=== PATIENT | male | born 1940 | race Hispanic/Latino ===

== ENCOUNTER → 2016-10-08 | Outpatient (REF) | payer OTHER ==
[~2016-10-08] MED LIST: ASPI81TA11 PO; ATEN50TA2 PO; ATOR40TA PO; BACT800T5 PO; CARV12.5 PO; CLOP75TA2 PO; DOCU100C PO; FLOM5CAP PO; LEVO75TA4 PO; METF500T PO; SENN8.6C PO; TYLE650T25 PO; [UNRECOGNIZED DRUG - OTHER] OR; [UNRECOGNIZED DRUG - SUPPLY]
== END ==
LOC: M SMT 12:44
PROVIDERS: ATTEND Urology
DX: N40.1 Benign prostatic hyperplasia with lower urinary tract symptoms (principal)

== ENCOUNTER → 2016-11-15 | Outpatient (CLI) | payer OTHER ==
[2016-11-15 11:08] LABS: ALBUMIN 3.7 GM/DL (3.2-5.2); ALBUMIN/GLOBULIN RATIO 1.06 (1.00-1.93); ALKALINE PHOSPHATASE 106 U/L (45-117); ALT/SGPT 22 U/L (12-78); ANION GAP 11 MEQ/L (8-16); AST/SGOT 14 U/L (15-37); BILIRUBIN,TOTAL 0.6 MG/DL (0.2-1.0); BLOOD UREA NITROGEN 16 MG/DL (7-18); CALCIUM LEVEL 8.8 MG/DL (8.8-10.2); CARBON DIOXIDE LEVEL 27 MEQ/L (21-32); CHLORIDE LEVEL 100 MEQ/L (98-107); CREATININE FOR GFR 1.09 MG/DL (0.70-1.30); GLOMERULAR FILTRATION RATE > 60.0 (>42); GLUCOSE, FASTING 263 MG/DL (83-110); POTASSIUM SERUM 4.2 MEQ/L (3.5-5.1); SODIUM LEVEL 138 MEQ/L (136-145); TOTAL PROTEIN 7.2 GM/DL (6.4-8.2)
== END ==
LOC: M LAB 10:01
PROVIDERS: ATTEND Physician Assistant
DX: I25.10 Atherosclerotic heart disease of native coronary artery without angina pectoris (principal); E78.2 Mixed hyperlipidemia; I11.9 Hypertensive heart disease without heart failure

== ENCOUNTER 2016-11-22 09:05 | Inpatient (IN) | payer OTHER ==
[~2016-11-22] VITALS: Ht 152.4 cm; Wt 73.6 kg
[2016-11-22] MEDS ORDERED: OMEP40CA2 PO ×2 (09:41→13:34)
[2016-11-22] MEDS ORDERED: OXYB5TA PO (09:41)
[2016-11-22] MEDS ORDERED: GLYB5TAB PO ×3 (09:41→13:34)
[2016-11-22] MEDS ORDERED: BAYE1TAB PO (09:41)
[2016-11-22] MEDS ORDERED: LISI-542 PO ×2 (09:41→13:34)
[2016-11-22] MEDS ORDERED: PLAV75TA38 PO ×2 (09:41→13:34)
[2016-11-22 11:36] LABS: ANION GAP 10 MEQ/L (8-16); BLOOD UREA NITROGEN 11 MG/DL (7-18); CALCIUM LEVEL 8.6 MG/DL (8.8-10.2); CARBON DIOXIDE LEVEL 24 MEQ/L (21-32); CHLORIDE LEVEL 91 MEQ/L (98-107); CREATININE FOR GFR 1.15 MG/DL (0.70-1.30); GLOMERULAR FILTRATION RATE > 60.0 (>42); GLUCOSE, FASTING 231 MG/DL (83-110); POTASSIUM SERUM 3.5 MEQ/L (3.5-5.1); SODIUM LEVEL 125 MEQ/L (136-145)
[2016-11-22 12:28] LABS: BASO % 0.1 % (0.0-1.0); EOS # 0.1 K/mm3 (0.0-0.50); EOS % 0.9 % (0.0-3.0); LARGE UNSTAINED CELL # 0.3 K/mm3 (0.0-0.4); LARGE UNSTAINED CELL % 2.7 % (0.0-4.0); LYMPH # 0.9 K/mm3 (1.5-4.5); LYMPH % 8.5 % (24.0-44.0); MEAN CORPUSCULAR HEMOGLOBIN 30.7 pg (27.0-33.0); MEAN CORPUSCULAR HGB CONC 33.8 g/dl (32.0-36.5); MEAN CORPUSCULAR VOLUME 90.8 fl (80.0-96.0); MONO # 0.5 K/mm3 (0.0-0.8); NEUTROPHILS # 8.3 K/mm3 (1.8-7.7); NEUTROPHILS % 82.8 % (36.0-66.0); PLATELET COUNT, AUTOMATED 159 k/mm3 (150-450); RED CELL DISTRIBUTION WIDTH 13.6 % (11.5-14.5)
[2016-11-22] MEDS ORDERED: CIPROFLOXACIN 400 MG in APPROPRIATE DILUENT 1 EA IV ONE (13:00)
[2016-11-22] MEDS ORDERED: ATOR40TA PO (13:34)
[2016-11-22] MEDS ORDERED: ACET-654 PO (13:34)
[2016-11-22] MEDS ORDERED: CARV12.5 PO (13:34)
[2016-11-22] MEDS ORDERED: ASPI325T PO (13:34)
[2016-11-22] MEDS ORDERED: LEVO75TA4 PO (13:34)
[2016-11-22] MEDS ORDERED: NS 1,000 ML IV SCH (15:24)
[2016-11-22] MEDS ORDERED: ONDANSETRON 4MG/2ML VIAL (J2405) IV PRN (15:30)
[2016-11-22 16:03] LABS: ALBUMIN 3.3 GM/DL (3.2-5.2); ALBUMIN/GLOBULIN RATIO 0.89 (1.00-1.93); BILIRUBIN,DIRECT 0.3 MG/DL (0.0-0.2); BILIRUBIN,TOTAL 0.9 MG/DL (0.2-1.0)
[2016-11-22] MEDS ORDERED: GASTROGRAFIN SOLUTION 30ML (Q9963) PO ONE ×2 (16:10→16:40)
[2016-11-22] MEDS: NORCO, ANEXSIA 5/325MG TABLET (HYDROcodone/ACETAMINOPHEN) PO PRN (16:13)
[2016-11-22] MEDS ORDERED: GLUCAGON FOR INJ 1 MG VIAL (J1610) SC PRN (16:15)
[2016-11-22] MEDS ORDERED: DEXTROSE 50% 50 ML SYRINGE IV PRN (16:15)
[2016-11-22] MEDS ORDERED: GLUCOSE 4 GM CHEW TABLET PO PRN (16:15)
--- NOTE | 2016-11-22 17:14 | ECGEPIP ---
Stationary ECG Study [facility] Test Date: 2016-11-22 Pat Name: ELENA DONALD Department: Room: - Gender: M Radiation Oncology Manager: rn : 1940 Requested By: DORA CONNOR Order Number: [id number] Reading MD: Sonia Grimaldo Measurements Intervals Nelson Rate: 62 P: 35 IN: 183 QRS: 68 QRSD: 102 T: 78 QT: 407 QTc: 415 Interpretive Statements SINUS RHYTHM ST & T-WAVE ABNORMALITY SIMILAR TO 11/11/15 Electronically Signed On 11-22-2016 17:13:55 EST by Sonia Grimaldo
[2016-11-22] MEDS ORDERED: HumaLOG INSULIN (NovoLOG) PER UNIT SC SCH ×2 (17:30→21:00)
--- NOTE | 2016-11-22 18:27 | HPE ---
DATE OF ADMISSION: 11/22/2016 Time patient was seen was at 1500 hours CHIEF COMPLAINT: Abdominal pain, painful urination. HISTORY OF PRESENT ILLNESS: 76-year-old male with past medical history of coronary artery disease, type 2 diabetes, benign prostatic hypertrophy (BPH) , urinary incontinence, who presented with severe abdominal pain and could not urinate. Per patient, it started three days ago and the patient has severe pain when he tries to urinate. He also has severe abdominal pain about 30 minutes after eating. He has reduced appetite due to the pain and has not been eating much for the past three days. In addition, the patient has diarrhea for the past three days as well and also admits to some chills and also nausea. However, the patient is passing flatus. The patient did see Dr. Currie, his urologist, one week ago, and was given oxybutynin for his urinary incontinence. He took the medication for about four days and it was discontinued due to dry mouth, and his problem started immediately after discontinuation of the oxybutynin, per patient. The patient also admits to elevated blood sugar. Per patient's daughter, the sugar was between 200 and 400 at home for the past few days, normally he runs around 200s. The patient does seen [facility] for primary care. In addition, the patient does not speak Portuguese. Most of the history was obtained from the patient's daughter. In addition, we have utilized the phone interpretation service. ALLERGIES: No known drug allergies. HOME MEDICATIONS: - acetaminophen 650 mg one tablet by mouth as needed - aspirin 325 mg one tablet by mouth daily - atorvastatin 40 mg one tablet by mouth at night - carvedilol 12.5 mg one tablet by mouth twice a day - Plavix 75 mg one tablet by mouth daily - glyburide/metformin 5/500 mg two tablets by mouth twice a day - Synthroid 75 mcg one tablet by mouth in the morning - Lisinopril 5 mg one tablet by mouth at night - omeprazole 40 mg one tablet by mouth daily PAST MEDICAL HISTORY: Includes: 1. Type 2 diabetes. 2. Coronary artery disease, status post stents. 3. Benign prostatic hypertrophy (BPH) . 4. Urinary incontinence. 5. Hypothyroidism. 6. Hypertension. 7. Gastroesophageal reflux disease (GERD). PAST SURGICAL HISTORY: Includes: 1. Cardiac stents, last stent was in 2014 at [facility]. 2. The patient also had prostate surgery with Dr. Currie. According to the patient's past medical history on the Electronic Medical Record, shows that the patient had a transurethral resection of prostate (TURP) procedure done with Dr. Currie due to prostate enlargement on 11/19/2015, roughly one year ago. SOCIAL HISTORY: The patient denies any smoking, drinking, or recreational drug use. The patient lives at home with daughter and son-in-law. The patient used to work in construction. FAMILY HISTORY: Denies any medical problems in the family, per patient's daughter. REVIEW OF SYSTEMS: CONSTITUTIONAL: The patient denies any recent traveling , any weight changes, any sick contacts. The patient does have chills; however. Denies any fever that was measured. HEENT: Denies any changes with vision, hearing or taste. CARDIOVASCULAR: Denies any chest pain, trouble breathing. PULMONARY: Denies any trouble breathing. GASTROINTESTINAL: Admits to nausea. Denies any vomiting. Admits to diarrhea. Denies any blood in the stool. GENITOURINARY: Admits to difficulty urinating and painful urination. Denies any changes with urinary color, however. MUSCULOSKELETAL: Denies any pain anywhere else. NEUROLOGIC: Denies any weakness on any side of his body. Denies any dizziness; however, admits to reduced appetite for the past few days due to the pain. ENDOCRINE: Admits to type 2 diabetes and sugar runs in the 300s for the past few days and normally runs in the 200s. The patient also has hypothyroidism and is taking supplementation. PSYCHIATRIC: Normal affect. SKIN: The patient does report some rash around the mouth, which appeared for the past few days. PHYSICAL EXAMINATION: VITAL SIGNS: Temperature 98.9, pulse 75, respirations 18, blood pressure 143/71, oxygen saturation 99% on room air. GENERAL: The patient is obese, elderly, male who was alert, awake, oriented times three. Appears to be younger than his age. Was lying in bed with head elevated at 45 degree angle. HEENT: Normocephalic, atraumatic. Extraocular motors intact. Mucosa moist. NECK: Supple. No neck lymphadenopathy. CARDIOVASCULAR: Regular rate and rhythm. S1, S2. No murmurs, rubs or gallops. LUNGS: Clear to auscultation bilaterally. No wheezes, rales or rhonchi. ABDOMEN: Hypoactive bowel sounds. Obese. Slightly distended. No peritoneal signs; however, it was tender to palpation, mostly to the left upper quadrant and suprapubic area. No ecchymosis. EXTREMITIES: No edema, clubbing or cyanosis. SKIN: Warm and dry. NEUROLOGIC: Cranial nerves II through XII intact. No focal neurologic deficit. LABORATORY DATA: WBC 10, hemoglobin 12.9, hematocrit 38.1 with a platelet count of 159. MCV of 19.8, neutrophil percentage was 82.8. ESR is pending. C-reactive protein was elevated at 14.2. Sodium was low at 125, potassium 3.5, chloride 91, bicarbonate 24, anion gap 10, BUN 10, creatinine 1.15, GFR greater than 60, fasting glucose 231, osmolality was low at 266. Calcium 8.6. Total bilirubin 0.9, direct bilirubin 0.3, AST 13, ALT 19, alkaline phosphatase 98, total protein 7, albumin 3.3, lipase 144, TSH was elevated at 4.43. Urinalysis shows cloudy urine, 2+ protein, 3+ glucose, 2+ blood, 2 urobilinogen, 2+ leukocyte esterase, WBC was too many to count, 24 RBCs and 2+ bacteria. There was also small amorphous sediment. Urine random osmolality was 622. Urine creatinine was 197. Urine sodium was 11. Urine culture is currently pending. Blood culture times two is pending. The patient's CT of the abdomen and pelvis with oral contrast, result is pending. ASSESSMENT AND PLAN: 76-year-old male with past medical history of type 2 diabetes, poorly controlled, hypertension, benign prostatic hypertrophy (BPH) , urinary incontinence, coronary artery disease, who presented with: 1. Abdominal pain and painful urination, likely related to urinary tract infection (UTI) versus partial small bowel obstruction. UA does show that the patient has urinary tract infection. The patient was started on ciprofloxacin in the emergency room. We will continue. However, the patient does appear to have severe abdominal pain, which was worse with food, therefore CT of the abdomen and pelvis has been ordered to rule out partial obstruction. However, the patient does not have a white count. However, the patient does have elevated C-reactive protein, which was 14.2. We will continue to monitor. We will followup with Clostridium (C) difficile study, as well as blood culture. Continue to monitor the patient. Keep patient nothing by mouth for now. Start gentle hydration. 2. Hyponatremia. Possibly hypovolemic due to diarrhea. The patient's creatinine does appear to be slightly elevated at 1.15. The patient may be dehydrated. We will start gentle hydration with normal saline at a rage of 40 mL per hour and see how well the patient responds. We will consider to increase IV fluid once the patient's sodium is more stable. Continue to monitor the patient's input and output. The patient did admit that he is not eating much for the past three days due to the pain and does admit that having diarrhea for the past three days. 3. Uncontrolled type 2 diabetes with sugar in the 300s at home. We will place the patient on insulin sliding scale for now and hold the patient's glyburide and metformin. Continue to monitor the patient. 4. History of hypertension. Continue home medication with Lisinopril and Coreg with hold parameters. Continue to monitor the patient. 5. Coronary artery disease, status post stent placement. Continue Lipitor, Coreg, aspirin, Plavix. Continue to monitor the patient. 6. History of hypothyroidism. Continue Synthroid. TSH was mildly elevated in the emergency room. We will followup with a Free T4 in the morning. 7. Deep vein thrombosis (DVT) prophylaxis with heparin 5000 units every 5 hours. DISPOSITION: We will need to followup with a CT of the abdomen and pelvis and followup with urine culture, blood culture and C difficile study. Continue to monitor the patient. We will continue the patient on ciprofloxacin 500 mg IV every 12 hours for now and continue to place the patient on gentle hydration and monitor for normalizing of his sodium. The patient has been discussed with attending doctor, Dr. Zapata. My preceptor for this patient encounter was Dr. Zapata. The preceptor was physically present in the building during the encounter and was fully available. As needed, all aspects of the patient interview, examination, medical decision making process, and medical care plan development were reviewed and approved by the preceptor. The preceptor is aware and concurs with the plan as stated in the body of this note and will attest to such by his/her cosignature.
--- NOTE | 2016-11-22 18:37 | REP ---
CT study of the abdomen and pelvis with oral but without IV contrast: History: Abdominal pain lower abdomen. No comparison studies. CT findings: Preliminary digital material worker radiograph demonstrates air and fluid filled small and large bowel loops throughout the abdomen with multiple air-fluid levels. The lung bases show emphysematous bullae and air cysts numerously distributed throughout the lower lobes and right middle lobe and lingula. There is some pleuroparenchymal fibrosis in the left base. There is a granulomatous calcification in the right lower lobe. No pleural effusion is seen. No adrenal lesion is observed. The liver and the spleen are normal in size homogeneous in texture. No pancreatic abnormality is seen. The gallbladder is unremarkable. No retroperitoneal mass or adenopathy is observed. Mild ectasia of the infrarenal abdominal aorta is seen, maximum AP dimension 2.4 cm. The appendix is not identified confidently but there is no CT evidence of appendicitis. There is sigmoid colon diverticulosis with no CT evidence of diverticulitis. The prostate gland is somewhat enlarged. Seminal vesicles and urinary bladder are unremarkable. No abdominal wall defect is seen. Bone window settings show no bony destructive lesion. There is no evidence of intrarenal nephrolithiasis or hydronephrosis on either side. Impression: Left colonic diverticulosis without CT evidence of diverticulitis. Abdominal aortic ectasia, no austin aneurysm. Prostate enlargement. Multiple small and large bowel air-fluid levels without obstructive lesion, question mild enteritis. No other abnormality. Signed by Destin Harmon MD 11/22/2016 07:46 P
[2016-11-22] MEDS: ACETAMINOPHEN TAB 650MG DOSE (2X325MG) PO PRN (22:49)
[2016-11-22 23:10] VITALS: BP 154/78
[2016-11-23] MEDS: DOCUSATE SODIUM 100 MG CAP PO SCH ×3 (00:07→21:56)
[2016-11-23] MEDS: ATORVASTATIN 20 MG TAB PO SCH ×2 (00:24→21:56)
[2016-11-23] MEDS: LISINOPRIL 5 MG TAB PO SCH ×2 (00:24→21:57)
[2016-11-23] MEDS: HEPARIN SOD (PORCINE) 5000 UNITS/ML VIAL SC SCH ×4 (00:25→22:02)
[2016-11-23] MEDS: CARVedilol 12.5 MG TAB PO SCH ×3 (00:25→21:56)
[2016-11-23] MEDS: metroNIDAZOLE 500 MG in APPROPRIATE DILUENT 1 EA IV SCH ×4 (00:25→14:27)
[2016-11-23] MEDS: HumaLOG INSULIN (NovoLOG) PER UNIT SC SCH ×5 (01:34→21:00)
[2016-11-23] MEDS: CIPROFLOXACIN 400 MG in APPROPRIATE DILUENT 1 EA IV SCH ×2 (01:34→12:08)
[2016-11-23 06:00] VITALS: BP 133/64
[2016-11-23] MEDS: LEVOTHYROXINE 0.075 MG TAB (75 MCG) PO SCH (06:23)
[2016-11-23 06:48] LABS: BASO % 0.3 % (0.0-1.0); EOS # 0.1 K/mm3 (0.0-0.50); EOS % 1.2 % (0.0-3.0); LARGE UNSTAINED CELL # 0.2 K/mm3 (0.0-0.4); LARGE UNSTAINED CELL % 4.5 % (0.0-4.0); LYMPH # 0.6 K/mm3 (1.5-4.5); LYMPH % 11.9 % (24.0-44.0); MEAN CORPUSCULAR HEMOGLOBIN 30.7 pg (27.0-33.0); MEAN CORPUSCULAR HGB CONC 33.6 g/dl (32.0-36.5); MEAN CORPUSCULAR VOLUME 91.3 fl (80.0-96.0); MONO # 0.4 K/mm3 (0.0-0.8); MONO % 8.4 % (0.0-5.0); NEUTROPHILS # 3.5 K/mm3 (1.8-7.7); NEUTROPHILS % 73.7 % (36.0-66.0); PLATELET COUNT, AUTOMATED 155 k/mm3 (150-450); RED CELL DISTRIBUTION WIDTH 13.7 % (11.5-14.5); WHITE BLOOD COUNT 4.8 K/mm3 (4.0-10.0)
[2016-11-23 07:18] LABS: ALBUMIN 2.9 GM/DL (3.2-5.2); ALBUMIN/GLOBULIN RATIO 0.67 (1.00-1.93); ALKALINE PHOSPHATASE 91 U/L (45-117); ALT/SGPT 16 U/L (12-78); ANION GAP 11 MEQ/L (8-16); AST/SGOT 14 U/L (15-37); BILIRUBIN,TOTAL 0.8 MG/DL (0.2-1.0); BLOOD UREA NITROGEN 11 MG/DL (7-18); CALCIUM LEVEL 8.3 MG/DL (8.8-10.2); CARBON DIOXIDE LEVEL 25 MEQ/L (21-32); CHLORIDE LEVEL 99 MEQ/L (98-107); CREATININE FOR GFR 1.08 MG/DL (0.70-1.30); GLOMERULAR FILTRATION RATE > 60.0 (>42); GLUCOSE, FASTING 165 MG/DL (83-110); POTASSIUM SERUM 3.4 MEQ/L (3.5-5.1); SODIUM LEVEL 135 MEQ/L (136-145); TOTAL PROTEIN 7.2 GM/DL (6.4-8.2)
[2016-11-23] MEDS ORDERED: NS 0.45% 1,000 ML IV SCH (07:45)
[2016-11-23] MEDS ORDERED: D5W 1,000 ML IV SCH (08:00)
[2016-11-23] MEDS ORDERED: POTASSIUM CHLORIDE 10 MEQ SR TABLET PO ONE (08:00)
[2016-11-23] MEDS: PANTOPRAZOLE 40MG INJ (PROTONIX) (C9113) IV SCH (08:54)
[2016-11-23] MEDS: ASPIRIN 325 MG TAB PO SCH (08:55)
[2016-11-23] MEDS: CLOPIDOGREL 75 MG TAB PO SCH (08:55)
[2016-11-23] MEDS ORDERED: OMEPRAZOLE 20 MG CAP PO SCH (09:00)
[2016-11-23] MEDS: MORPHINE 2 MG/ML 1ML SYRINGE IV PRN ×2 (09:07→12:13)
[2016-11-23] MEDS: TAMSULOSIN 0.4 MG CAP PO SCH (10:52)
[2016-11-23 12:43] LABS: ANION GAP 11 MEQ/L (8-16); BLOOD UREA NITROGEN 10 MG/DL (7-18); CALCIUM LEVEL 8.3 MG/DL (8.8-10.2); CARBON DIOXIDE LEVEL 23 MEQ/L (21-32); CHLORIDE LEVEL 96 MEQ/L (98-107); CREATININE FOR GFR 1.24 MG/DL (0.70-1.30); GLOMERULAR FILTRATION RATE > 60.0 (>42); GLUCOSE, FASTING 255 MG/DL (83-110); POTASSIUM SERUM 3.9 MEQ/L (3.5-5.1); SODIUM LEVEL 130 MEQ/L (136-145)
[2016-11-23 14:00] VITALS: BP 152/67
--- NOTE | 2016-11-23 15:23 | IPN ---
DATE: 11/23/2016 Time patient was seen was this morning at 10:30. The patient has been seen and examined at bedside. No acute events overnight. However, yesterday evening, the patient did have an elevated temperature at 10: 37 p.m. and temperature was 101.3. This morning, the patient was feeling well, improved from yesterday. Stated that the abdominal pain has improved. The patient was urinating better. Denies any trouble breathing or any further abdominal pains. Denies any other current new complaints. PHYSICAL EXAMINATION: VITAL SIGNS: Temperature was 99.2, pulse was 63, respirations 18, blood pressure 133/64, oxygen saturation 94% on room air. GENERAL: The patient is obese, elderly, male, who was pleasant; however, does not understand Faroese. The patient is lying comfortably in bed. HEENT: Normocephalic, atraumatic. Extraocular motors intact. Mucosa moist. NECK: Supple. No neck lymphadenopathy. CARDIOVASCULAR: Regular rate and rhythm. S1, S2. There was a 2/6 systolic heart murmur. PULMONARY: Clear to auscultation bilaterally. No wheezes, rales or rhonchi. ABDOMEN: Positive bowel sounds. Soft, nontender. There are no peritoneal signs. No ecchymoses. EXTREMITIES: No edema, clubbing, or cyanosis. SKIN: Warm and dry. NEUROLOGIC: Cranial nerves II through XII intact. No focal neurological deficit. LABORATORY DATA: WBC 4.8, hemoglobin 12.5, hematocrit 37.3 with a platelet count of 155, MCV 91.3. ESR 69. Sodium this morning initially was 135, repeat was 130, potassium 3.4, chloride 99, bicarbonate 25, BUN 11, creatinine 1.08, GFR was greater than 60%, fasting glucose 165, calcium 8.3, total bilirubin 0.8, AST 14, ALT is 16, alkaline phosphatase 91, C-reactive protein 9.77, improved from yesterday 14.2, total protein 7.2, albumin 2.9, Free T4 1.3. Accu-Chek glucose was 114, 152, 163, 253. The patient's GI panel shows positive for multi plaque nucleic acid indicating Enteroaggregative Escherichia (E) coli , which is the second most common cause for traveler's diarrhea. The patient had a CT of the abdomen and pelvis yesterday evening, which shows left colonic diverticulosis without CT evidence of diverticulitis. Abdominal aortic ectasia. No austin aneurysm. Prostate enlargement. Multiple small and large bowel air-fluid level without obstructive lesion, questionable mild enteritis. ASSESSMENT AND PLAN: 76-year-old male with past medical history of type 2 diabetes, coronary artery disease, status post stents, benign prostatic hypertrophy (BPH), urinary incontinence, hypothyroidism, hypertension, gastroesophageal reflux disease (GERD), presented with: 1. Abdominal pain and painful urination likely secondary to bacterial enteritis. CT of the abdomen and pelvis shows enteritis. The patient's GI panel also shows traveler's diarrhea. The patient was on Cipro and Flagyl for possible colitis. We will discontinue Flagyl today and continue the patient on ciprofloxacin. Continue to monitor the patient. We will advance diet as tolerated. 2. Hyponatremia. Sodium has raised up to 135 this morning from 125. We will reverse the correction with D5W and then we will stop the IV fluid and continue the patient on advanced diet as tolerated. We will repeat her basic metabolic panel to monitor the correction. 3. Recently found aortic ectasia, stable. The patient may need outpatient followup. 4. History of benign prostatic hypertrophy (BPH). Start the patient on Flomax. We will continue to monitor. 5. Type 2 diabetes. On insulin sliding scale. 6. Coronary artery disease, status post stents. Continue home medications. On statin, beta anna marie. 7. Hypothyroidism. Continue Synthroid. 8. Gastroesophageal reflux disease (GERD). Continue proton pump inhibitor. 9. Deep vein thrombosis (DVT) prophylaxis with subcutaneous heparin. DISPOSITION: The patient has traveler's diarrhea. We will continue Cipro. Also, the patient has hyponatremia, likely secondary to GI loss and poor oral intake. We will continue to monitor, which has been corrected today. The patient has been discussed with attending doctor, Dr. Leija. My preceptor for this patient encounter was Dr. Leija. The preceptor was physically present in the building during the encounter and was fully available. As needed, all aspects of the patient interview, examination, medical decision making process, and medical care plan development were reviewed and approved by the preceptor. The preceptor is aware and concurs with the plan as stated in the body of this note and will attest to such by his/her cosignature. ARABELLA
[2016-11-23 16:35] LABS: ANION GAP 10 MEQ/L (8-16); BLOOD UREA NITROGEN 9 MG/DL (7-18); CALCIUM LEVEL 8.1 MG/DL (8.8-10.2); CARBON DIOXIDE LEVEL 24 MEQ/L (21-32); CHLORIDE LEVEL 99 MEQ/L (98-107); CREATININE FOR GFR 1.11 MG/DL (0.70-1.30); GLOMERULAR FILTRATION RATE > 60.0 (>42); GLUCOSE, FASTING 158 MG/DL (83-110); POTASSIUM SERUM 3.7 MEQ/L (3.5-5.1); SODIUM LEVEL 133 MEQ/L (136-145)
[2016-11-23] MEDS: NORCO, ANEXSIA 5/325MG TABLET (HYDROcodone/ACETAMINOPHEN) PO PRN (17:51)
[2016-11-23] MEDS ORDERED: EUCERIN 120GM CREAM TOP PRN (18:00)
[2016-11-23 22:00] VITALS: BP 133/66
[2016-11-24] MEDS: CIPROFLOXACIN 400 MG in APPROPRIATE DILUENT 1 EA IV SCH ×2 (00:02→13:02)
[2016-11-24 06:00] VITALS: BP 146/72
[2016-11-24] MEDS: ACETAMINOPHEN TAB 650MG DOSE (2X325MG) PO PRN (06:23)
[2016-11-24] MEDS: HEPARIN SOD (PORCINE) 5000 UNITS/ML VIAL SC SCH ×3 (06:24→19:42)
[2016-11-24] MEDS: LEVOTHYROXINE 0.075 MG TAB (75 MCG) PO SCH (06:24)
[2016-11-24 06:56] LABS: BASO % 0.5 % (0.0-1.0); EOS # 0.1 K/mm3 (0.0-0.50); EOS % 3.5 % (0.0-3.0); LARGE UNSTAINED CELL # 0.2 K/mm3 (0.0-0.4); LARGE UNSTAINED CELL % 4.9 % (0.0-4.0); LYMPH # 0.9 K/mm3 (1.5-4.5); LYMPH % 23.2 % (24.0-44.0); MEAN CORPUSCULAR HEMOGLOBIN 31.6 pg (27.0-33.0); MEAN CORPUSCULAR HGB CONC 34.1 g/dl (32.0-36.5); MEAN CORPUSCULAR VOLUME 92.7 fl (80.0-96.0); MONO # 0.5 K/mm3 (0.0-0.8); MONO % 13.4 % (0.0-5.0); NEUTROPHILS # 1.8 K/mm3 (1.8-7.7); NEUTROPHILS % 54.5 % (36.0-66.0); PLATELET COUNT, AUTOMATED 180 k/mm3 (150-450); RED CELL DISTRIBUTION WIDTH 14.1 % (11.5-14.5); WHITE BLOOD COUNT 3.4 K/mm3 (4.0-10.0)
[2016-11-24 07:17] LABS: ALBUMIN 2.8 GM/DL (3.2-5.2); ALBUMIN/GLOBULIN RATIO 0.68 (1.00-1.93); ALKALINE PHOSPHATASE 89 U/L (45-117); ALT/SGPT 20 U/L (12-78); ANION GAP 10 MEQ/L (8-16); AST/SGOT 22 U/L (15-37); BILIRUBIN,TOTAL 0.6 MG/DL (0.2-1.0); BLOOD UREA NITROGEN 8 MG/DL (7-18); CALCIUM LEVEL 8.5 MG/DL (8.8-10.2); CARBON DIOXIDE LEVEL 24 MEQ/L (21-32); CHLORIDE LEVEL 100 MEQ/L (98-107); CREATININE FOR GFR 1.07 MG/DL (0.70-1.30); GLOMERULAR FILTRATION RATE > 60.0 (>42); GLUCOSE, FASTING 215 MG/DL (83-110); POTASSIUM SERUM 3.9 MEQ/L (3.5-5.1); SODIUM LEVEL 134 MEQ/L (136-145); TOTAL PROTEIN 6.9 GM/DL (6.4-8.2)
[2016-11-24] MEDS: PANTOPRAZOLE 40MG INJ (PROTONIX) (C9113) IV SCH (08:13)
[2016-11-24] MEDS: NORCO, ANEXSIA 5/325MG TABLET (HYDROcodone/ACETAMINOPHEN) PO PRN ×2 (08:14→19:39)
[2016-11-24] MEDS: CLOPIDOGREL 75 MG TAB PO SCH (08:14)
[2016-11-24] MEDS: HumaLOG INSULIN (NovoLOG) PER UNIT SC SCH ×4 (08:14→21:00)
[2016-11-24] MEDS: ASPIRIN 325 MG TAB PO SCH (08:14)
[2016-11-24] MEDS: TAMSULOSIN 0.4 MG CAP PO SCH (08:16)
[2016-11-24] MEDS: DOCUSATE SODIUM 100 MG CAP PO SCH ×2 (08:16→19:42)
[2016-11-24] MEDS: CARVedilol 12.5 MG TAB PO SCH ×2 (08:16→19:38)
[2016-11-24] MEDS: ACYCLOVIR 5% OINT 15GM TOP SCH ×3 (13:02→19:42)
[2016-11-24 14:00] VITALS: BP 160/70
--- NOTE | 2016-11-24 14:54 | IPN ---
DATE: 11/24/2016 Time patient was seen was this morning at 9:30. The patient has been seen and examined at bedside. No acute events overnight. The patient continued to complain about painful urination; however, abdominal pain has mostly resolved. The patient was able to tolerate a clear liquid diet and full liquid diet. The patient denies any nausea or vomiting, any diarrhea or constipation. The patient continues to admit to chills, however. Otherwise, the patient also has a rash around the mouth, which continues to be present. The patient denies any other current new complaints. PHYSICAL EXAMINATION: VITAL SIGNS: Temperature was 98.4, pulse was 59, respirations 18, blood pressure 146/72, oxygen saturation 97% on room air. GENERAL: The patient is a elderly male who looks younger than his age. Does not appear to be in distress. Was walking in the hallway before the interview. HEENT: Normocephalic, atraumatic. Extraocular motors intact. Pupils are moist. NECK: Supple. No neck lymphadenopathy. CARDIOVASCULAR: Regular rate and rhythm. S1, S2. No murmurs, rubs or gallops. LUNGS: Clear to auscultation bilaterally. No wheezes, rales or rhonchi. ABDOMEN: Positive bowel sounds. Soft, nontender. There are no peritoneal signs. No ecchymoses. EXTREMITIES: No edema, clubbing, or cyanosis. SKIN: The patient does still have papular rash on around the mouth. NEUROLOGIC: Cranial nerves II through XII intact. No focal neurological deficit. LABORATORY DATA: WBC 3.4, hemoglobin 12.9, hematocrit 37.8 with a platelet count of 180 and MCV 92.7. Sodium 134, potassium 3.4, chloride 100, BUN 8, creatinine 1.07, GFR greater than 60, fasting glucose 215, calcium 8.5, total bilirubin 0.6, AST 22, ALT is 20, alkaline phosphatase 89, C-reactive protein today was reduced to 5.66, total protein 6.9, albumin 2.8. Accu-Chek glucose was 163, 253, 134, 171, 221. The patient's stool occult blood was negative. Blood culture shows no growth after 2 days. Urine culture continues to show Klebsiella pneumoniae, which was sensitive to everything except ampicillin. No new imaging. ASSESSMENT AND PLAN: 76-year-old male with past medical history of type 2 diabetes, coronary artery disease, status post stents, benign prostatic hypertrophy (BPH), urinary incontinence, hypothyroidism, hypertension, gastroesophageal reflux disease (GERD), presented with: 1. Abdominal pain and painful urination. CT of the abdomen and pelvis showed enteritis. GI panel also shows traveler's diarrhea. We will continue the patient on ciprofloxacin. 2. Painful urination, possibly secondary to urinary tract infection (UTI). However, if the pain continues, the patient may need outpatient urology followup. 3. Anemia. The patient's fecal occult blood was negative. We will rule out other causes for anemia, including B12, folate deficiency, and iron deficiency. The patient may need further workup as outpatient. 4. Recently found aortic ectasia, stable. The patient may need outpatient followup. 5. History of benign prostatic hypertrophy (BPH). Start the patient on Flomax. We will continue to monitor. 6. Type 2 diabetes. Glyburide and metformin combination was not available formulary in the hospital. We have started the patient on metformin extended release 2000 mg and we will continue to monitor. 7. Rash around the mouth, possibly secondary to herpes simplex virus. Acyclovir cream has been ordered. We will monitor for improvement. 8. History of hypothyroidism. Continue Synthroid. 9. History of coronary artery disease, continue statin and beta anan marie. 10. History of gastroesophageal reflux disease (GERD). Continue proton pump inhibitor. 11. Deep vein thrombosis (DVT) prophylaxis with subcutaneous heparin. DISPOSITION: The patient has traveler's diarrhea, which is improving. However, the patient still has pain on urination. The patient does also have a urinary tract infection (UTI). We will continue treating for both traveler's diarrhea and UTI with Cipro and continue to monitor the patient. If the patient's painful urination continues, the patient may need outpatient followup with his urologist, Dr. Currie. The patient has been discussed with attending doctor, Dr. Leija. My preceptor for this patient encounter was Dr. Leija. The preceptor was physically present in the building during the encounter and was fully available. As needed, all aspects of the patient interview, examination, medical decision making process, and medical care plan development were reviewed and approved by the preceptor. The preceptor is aware and concurs with the plan as stated in the body of this note and will attest to such by his/her cosignature.
[2016-11-24] MEDS ORDERED: metFORMIN XR 500MG TAB *GLUCOPHAGE XR PO SCH (18:00)
[2016-11-24] MEDS: ATORVASTATIN 20 MG TAB PO SCH (19:38)
[2016-11-24] MEDS: LISINOPRIL 5 MG TAB PO SCH (19:38)
[2016-11-24 22:00] VITALS: BP 168/90
[2016-11-25] MEDS: CIPROFLOXACIN 400 MG in APPROPRIATE DILUENT 1 EA IV SCH (00:24)
[2016-11-25] MEDS: ACYCLOVIR 5% OINT 15GM TOP SCH ×2 (05:31→09:10)
[2016-11-25] MEDS: LEVOTHYROXINE 0.075 MG TAB (75 MCG) PO SCH (05:31)
[2016-11-25] MEDS: HEPARIN SOD (PORCINE) 5000 UNITS/ML VIAL SC SCH (05:31)
[2016-11-25] MEDS: NORCO, ANEXSIA 5/325MG TABLET (HYDROcodone/ACETAMINOPHEN) PO PRN (05:44)
[2016-11-25 06:00] VITALS: BP 172/88
[2016-11-25 07:20] LABS: MEAN CORPUSCULAR HEMOGLOBIN 30.6 pg (27.0-33.0); MEAN CORPUSCULAR HGB CONC 33.5 g/dl (32.0-36.5); MEAN CORPUSCULAR VOLUME 91.4 fl (80.0-96.0); PLATELET COUNT, AUTOMATED 181 k/mm3 (150-450); RED CELL DISTRIBUTION WIDTH 13.8 % (11.5-14.5); WHITE BLOOD COUNT 4.9 K/mm3 (4.0-10.0)
[2016-11-25 07:29] LABS: ALBUMIN 2.8 GM/DL (3.2-5.2); ALBUMIN/GLOBULIN RATIO 0.67 (1.00-1.93); ALKALINE PHOSPHATASE 95 U/L (45-117); ALT/SGPT 25 U/L (12-78); ANION GAP 9 MEQ/L (8-16); AST/SGOT 25 U/L (15-37); BILIRUBIN,TOTAL 0.3 MG/DL (0.2-1.0); BLOOD UREA NITROGEN 10 MG/DL (7-18); CALCIUM LEVEL 8.3 MG/DL (8.8-10.2); CARBON DIOXIDE LEVEL 26 MEQ/L (21-32); CHLORIDE LEVEL 100 MEQ/L (98-107); CREATININE FOR GFR 1.11 MG/DL (0.70-1.30); FERRITIN 118 NG/ML (26-388); GLOMERULAR FILTRATION RATE > 60.0 (>42); GLUCOSE, FASTING 195 MG/DL (83-110); PERCENT SATURATION 23.7 % (19.7-37.4); POTASSIUM SERUM 4.2 MEQ/L (3.5-5.1); SODIUM LEVEL 135 MEQ/L (136-145); TOTAL IRON BINDING CAPACITY 291 UG/DL (250-450)
[2016-11-25] MEDS ORDERED: glyBURIDE 5 MG TAB PO SCH (07:30)
[2016-11-25 08:03] LABS: BASOPHILS 1 % (0-4); EOSINOPHILS 4 % (0-5)
[2016-11-25] MEDS ORDERED: LISINOPRIL 5 MG TAB PO ONE (08:30)
[2016-11-25] MEDS ORDERED: CIPR750T2 PO (08:41)
[2016-11-25] MEDS ORDERED: AMLO5TAB2 PO (08:41)
[2016-11-25] MEDS ORDERED: ACYC5OIN TOP (08:41)
[2016-11-25] MEDS ORDERED: amLODIPine 5 MG TAB PO SCH (09:00)
[2016-11-25] MEDS: ASPIRIN 325 MG TAB PO SCH (09:08)
[2016-11-25 09:09] VITALS: BP 172/88
[2016-11-25] MEDS: ACETAMINOPHEN TAB 650MG DOSE (2X325MG) PO PRN (09:09)
[2016-11-25] MEDS: CARVedilol 12.5 MG TAB PO SCH (09:09)
[2016-11-25] MEDS: HumaLOG INSULIN (NovoLOG) PER UNIT SC SCH (09:10)
[2016-11-25] MEDS: TAMSULOSIN 0.4 MG CAP PO SCH (09:10)
[2016-11-25] MEDS: CLOPIDOGREL 75 MG TAB PO SCH (09:10)
[2016-11-25] MEDS: DOCUSATE SODIUM 100 MG CAP PO SCH (09:10)
[2016-11-25] MEDS: PANTOPRAZOLE 40MG INJ (PROTONIX) (C9113) IV SCH (09:10)
[2016-11-25] MEDS ORDERED: IBUPROFEN 400 MG TAB PO ONE (09:30)
[2016-11-25] MEDS ORDERED: IBUPROFEN 400 MG TAB PO PRN (09:30)
[2016-11-25 10:36] LABS: VITAMIN B12 LEVEL 321 PG/ML (247-911)
[2016-11-25 10:37] LABS: FOLATE 17.7 NG/ML (>5.4)
--- NOTE | 2016-11-25 16:28 | DSES ---
DATE OF ADMISSION: 11/22/2016 DATE OF DISCHARGE: 11/25/2016 ADMISSION DIAGNOSES: 1. Abdominal pain and painful urination, likely secondary to urinary tract infection versus possibly intra-abdominal etiology. 2. Hyponatremia. 3. Uncontrolled type 2 diabetes. 4. History of hypertension. 5. Coronary artery disease, status post stent placement. 6. History of hypothyroidism. DISCHARGE DIAGNOSES: 1. Abdominal pain and painful urination, likely secondary to bacterial enteritis due to traveler's diarrhea. 2. Painful urination, possibly secondary to urinary tract infection. 3. Anemia. 4. 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 5. History of BPH. 6. Type 2 diabetes. 7. 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 8. History of hypothyroidism. 9. Coronary artery disease. CONSULTANTS: None. PROCEDURES AND IMAGING: The patient did have a CT of the abdomen and pelvis on the day of admission on 11/22/2016, which showed left colonic diverticulosis without CT evidence of diverticulitis. Abdominal aortic ectasia. No [place] aneurysm. The patient does have prostate enlargement. Multiple small and large bowel air fluid level without obstructive lesion. Question of mild enteritis. No other abnormalities. HISTORY OF THE PRESENT ILLNESS: A 76-year-old male with a past medical history of coronary artery disease, type 2 diabetes, BPH, urinary incontinence, presented with severe abdominal pain and could not urinate. Per patient, it started 3 days ago. The patient had severe pain when he tries to urinate. He also has severe abdominal pain about 30 minutes after eating. He has reduced appetite due to the pain and has not been eating much for the past 3 days. In addition, the patient has diarrhea for the past few days as well and admits to some chills and nausea. However, the patient is passing flatus. The patient does see Dr. Currie, his urologist, for BPH, and he was given oxybutynin for his urinary incontinence, which was stopped right before patient's symptoms started. He took the medication about 4 days and developed dry mouth. Per patient's daughter, who is also present, the patient's sugar was also elevated between 200 and 300 at home for the past few days. Normally, it runs in the 200s . Most of the history was obtained from the patient's daughter due to patient does not speak [place]. We have also utilized the phone interpretation service at [facility]. ALLERGIES: No known drug allergies. HOSPITAL COURSE: On the day of admission, the patient had a CT of abdomen and pelvis to rule out possible partial bowel obstruction. The patient was started on Cipro and Flagyl due to possible colitis. However, the next day the result came back and also the patient's gastrointestinal (GI) panel also came back, shows that the patient had possibly bacterial enteritis due to traveler's diarrhea. Therefore, the patient's Flagyl was discontinued and kept the patient on ciprofloxacin alone. The patient was also found to have hyponatremia, which was likely secondary to diarrhea and poor oral intake. The patient was started on gentle intravenous (IV) hydration to correct the patient's sodium, and eventually over the past few days, sodium was corrected. Also, the patient's diabetes appears to be uncontrolled, which was likely secondary to acute infection. The patient's sugar also improved over the next few days, and other home medications were restarted in the hospital. On the day of discharge, the patient was ambulating, admits to much less pain. However, he still admits to some pain when he urinates. DISCHARGE MEDICATIONS: The patient's new prescriptions include: - acyclovir 5% ointment for 5 days, applied around the lips - amlodipine 5 mg by mouth daily, hold if systolic blood pressure is less than 120 - ciprofloxacin 750 mg one tablet by mouth twice a day for the next three days Continue home medications, including: - acetaminophen 325 mg one tablet by mouth as needed - aspirin 325 mg one tablet by mouth daily - atorvastatin 40 mg one tablet by mouth at night - carvedilol 12.5 mg one tablet by mouth twice a day - Plavix 75 mg one tablet by mouth daily - glyburide/metformin 5/500 two tablets by mouth twice a day - Synthroid 75 mcg one tablet by mouth in the morning - Lisinopril 5 mg one tablet by mouth at night - omeprazole DISCHARGE CONDITION: Stable. ACTIVITY: As tolerated. DIET: Carbohydrate consistent diet. FOLLOWUP: The patient should followup with primary care provider as soon as possible. Also should followup with Dr. Currie, his urologist, within 1 week. ADDITIONAL INSTRUCTIONS: If the patient develops increased pain when he urinates or sees any blood in the urine, or was unable to urinate for several hours, the patient should call primary care provider (PCP) or come to the emergency room. The patient has been discussed with attending doctor, Dr. Leija. My preceptor for this patient encounter was Dr. Leija. The preceptor was physically present in the building during the encounter and was fully available. As needed, all aspects of the patient interview, examination, medical decision making process, and medical care plan development were reviewed and approved by the preceptor. The preceptor is aware and concurs with the plan as stated in the body of this note and will attest to such by his/her cosignature. Edited: 11/25/2016, valeria BELL
[2016-11-25] MEDS ORDERED: LISINOPRIL 10 MG TAB PO SCH (21:00)
--- NOTE | 2016-11-25 23:10 | IPN ---
DATE: 11/25/2016 Time patient seen: DICTATION ENDS HERE My preceptor for this patient encounter was Dr. Leija. The preceptor was physically present in the building during the encounter and was fully available as needed. All aspects of the patient interview, examination, medical decision making process, and medical care plan development were reviewed and approved by the preceptor. The preceptor is aware and concurs with the plan as stated in the body of this note and will attest to such by his/her co-signature.
== END 2016-11-25 11:59 | disposition home or self-care (01) | DRG 248 ==
LOC: M ED 10:46 → M ED INP 21:14 → M MSPAV 23:10
PROVIDERS: ADMIT Internal Medicine; ATTEND Internal Medicine
DX: A04.8 Other specified bacterial intestinal infections (principal); E11.65 Type 2 diabetes mellitus with hyperglycemia; N39.0 Urinary tract infection, site not specified; E87.1 Hypo-osmolality and hyponatremia; B00.9 Herpesviral infection, unspecified; E86.0 Dehydration; D64.9 Anemia, unspecified; I25.10 Atherosclerotic heart disease of native coronary artery without angina pectoris; N40.1 Benign prostatic hyperplasia with lower urinary tract symptoms; R32 Unspecified urinary incontinence; E03.9 Hypothyroidism, unspecified; I10 Essential (primary) hypertension; K21.9 Gastro-esophageal reflux disease without esophagitis; E66.9 Obesity, unspecified; B96.20 Unspecified Escherichia coli [E. coli] as the cause of diseases classified elsewhere; Z95.5 Presence of coronary angioplasty implant and graft; Z68.31 Body mass index [BMI] 31.0-31.9, adult; I77.811 Abdominal aortic ectasia; Z79.82 Long term (current) use of aspirin; Z79.02 Long term (current) use of antithrombotics/antiplatelets; Z79.899 Other long term (current) drug therapy; Z79.84 Long term (current) use of oral hypoglycemic drugs

== ENCOUNTER → 2016-12-02 | Outpatient (REF) | payer OTHER ==
[~2016-12-02] MED LIST changes: +ACET-654 PO; +ACYC5OIN TOP; +AMLO5TAB2 PO; +ASPI325T PO; +BAYE1TAB PO; +CIPR750T2 PO; +GLYB5TAB PO; +LISI-542 PO; +OMEP40CA2 PO; +OXYB5TA PO; +PLAV75TA38 PO
== END ==
LOC: M SMT 15:12
PROVIDERS: ATTEND Nurse Practitioner Women's Health
DX: N39.0 Urinary tract infection, site not specified (principal)

== ENCOUNTER → 2016-12-06 | Outpatient (CLI) | payer OTHER ==
[2016-12-06 10:35] LABS: ALBUMIN 3.6 GM/DL (3.2-5.2); ALKALINE PHOSPHATASE 96 U/L (45-117); ALT/SGPT 27 U/L (12-78); ANION GAP 10 MEQ/L (8-16); AST/SGOT 18 U/L (15-37); BILIRUBIN,TOTAL 0.7 MG/DL (0.2-1.0); BLOOD UREA NITROGEN 13 MG/DL (7-18); CALCIUM LEVEL 8.9 MG/DL (8.8-10.2); CARBON DIOXIDE LEVEL 26 MEQ/L (21-32); CHLORIDE LEVEL 104 MEQ/L (98-107); CHOLESTEROL LEVEL 119 MG/DL (<200); CREATININE FOR GFR 1.14 MG/DL (0.70-1.30); GLOMERULAR FILTRATION RATE > 60.0 (>42); GLUCOSE, FASTING 100 MG/DL (83-110); POTASSIUM SERUM 4.6 MEQ/L (3.5-5.1); SODIUM LEVEL 140 MEQ/L (136-145); TOTAL PROTEIN 7.8 GM/DL (6.4-8.2); TRIGLYCERIDES LEVEL 137 MG/DL (<150)
[2016-12-06 10:36] LABS: ALBUMIN/GLOBULIN RATIO 0.86 (1.00-1.93)
== END ==
LOC: M LAB 09:39
PROVIDERS: ATTEND Family Medicine Addiction Medicine
DX: E11.9 Type 2 diabetes mellitus without complications (principal)

== ENCOUNTER → 2017-03-01 | Outpatient (REF) | payer OTHER ==
[2017-03-01 14:16] LABS: ALBUMIN 4.4 GM/DL (3.2-5.2); ALBUMIN/GLOBULIN RATIO 1.22 (1.00-1.93); BILIRUBIN,TOTAL 0.6 MG/DL (0.2-1.0); CALCIUM LEVEL 9.8 MG/DL (8.8-10.2); CREATININE FOR GFR 1.31 MG/DL (0.70-1.30); GLOMERULAR FILTRATION RATE 56.8 (>42); POTASSIUM SERUM 4.9 MEQ/L (3.5-5.1)
== END ==
LOC: M LAB REF 13:40
PROVIDERS: ATTEND Family Medicine Addiction Medicine
DX: E11.9 Type 2 diabetes mellitus without complications (principal)

== ENCOUNTER → 2017-03-09 | Outpatient (REF) | payer OTHER | LOC: M SMT 13:02 | PROVIDERS: ATTEND Urology | DX: N40.1 Benign prostatic hyperplasia with lower urinary tract symptoms (principal) ==